=== PATIENT | male | born 1965 | race African-American/Black ===

== ENCOUNTER 2017-05-30 09:01 | Emergency (ER) | payer MEDICARE ==
[~2017-05-30] VITALS: Ht 172.7 cm; Wt 88.0 kg
[2017-05-30] MEDS ORDERED: IBUPROFEN 600MG TABLET PO ONE (09:45)
[2017-05-30 09:46] VITALS: BP 134/79
== END 2017-05-30 12:46 | disposition home or self-care (01) ==
LOC: ER 09:16
DX: S16.1XXA Strain of muscle, fascia and tendon at neck level, initial encounter (principal); M79.674 Pain in right toe(s); M54.6 Pain in thoracic spine; M25.511 Pain in right shoulder; V89.2XXA Person injured in unspecified motor-vehicle accident, traffic, initial encounter; Y93.89 Activity, other specified; Y92.89 Other specified places as the place of occurrence of the external cause; Y99.8 Other external cause status
CPT/HCPCS: 71101; 72125; 73030; 99284